=== PATIENT | female | born 1935 ===

== ENCOUNTER → 2018-07-25 10:55 | Outpatient (BNVA) | payer MEDICARE, SELFPAY | PROVIDERS: Referring Provider Legal Medicine; Visit Provider Nurse Practitioner Gerontology | DX: F03.91 Unspecified dementia, unspecified severity, with behavioral disturbance; Z87.440 Personal history of urinary (tract) infections; R35.0 Frequency of micturition; R39.15 Urgency of urination; R45.1 Restlessness and agitation | CPT/HCPCS: 99204 ==